=== PATIENT | male | born 1970 | race Two or more races ===

== ENCOUNTER 2019-02-12 05:25 | Emergency (ER) | payer SELFPAY ==
[~2019-02-12] VITALS: Ht 167.6 cm; Wt 63.5 kg
[2019-02-12 05:45] VITALS: BP 144/85
[2019-02-12] MEDS ORDERED: AMOX500C PO (06:26)
[2019-02-12] MEDS ORDERED: HYDR-3164 PO (06:26)
--- NOTE | 2019-02-12 06:26 | PHYS DOC ---
Past Medical History Past Medical History: No Pertinent History Additional Information: Denies smoking Adult General Chief Complaint Chief Complaint: COUGH HPI HPI Patient is a 49 year old French speaking male patient without history of medical problem who presents with complaint of cough. Patient complaining of productive cough with brownish sputum, sore throat, bilateral chest pain during episodes of cough, posttussive vomiting and subjective fever for the last 2 weeks. Patient was seen at [facility] yesterday and had extensive evaluation including chest x-ray and labs showed pancytopenia with unremarkable blood smea r. Patient had diagnoses of influenza discharged home with Tessalon and Tylenol but he states he doesn't feel better today. Patient did not have fever at arrival to ER. Review of Systems Review of Systems Constitutional: Reports subjective fever Eyes: Denies change in visual acuity, redness, or eye pain [] HENT: Denies nasal congestion, reports sore throat [] Respiratory: Denies shortness of breath, reports cough [] Cardiovascular: No additional information not addressed in HPI [] GI: Denies abdominal pain, bloody stools or diarrhea [] : Denies dysuria or hematuria [] Musculoskeletal: Denies back pain or joint pain [] Integument: Denies rash or skin lesions [] Neurologic: Denies headache, focal weakness or sensory changes [] Endocrine: Denies polyuria or polydipsia [] All other systems were reviewed and found to be within normal limits, except as documented in this note. Current Medications Current Medications Current Medications Medications (Trade) Dose Ordered Sig/Yusef Start Time Stop Time Status Last Admin Dose Admin Acetaminophen/ Hydrocodone Bitart (Lortab 5/325) 1 tab 1X ONCE 02/12/19 07:00 02/12/19 07:01 Allergies Allergies Allergies Coded Allergies Type Severity Reaction Last Updated Verified No Known Drug Allergies 02/12/19 No Physical Exam Physical Exam Constitutional: Well developed, well nourished, mild distress, non-toxic appearance, O2 sat of 100% at room air. [] HENT: Normocephalic, atraumatic, bilateral external ears normal, oropharynx moist, no oral exudates, nose normal. [] Eyes: PERRLA, EOMI, conjunctiva normal, no discharge. [] Neck: Normal range of motion, no tenderness, supple, no stridor. [] Cardiovascular:Heart rate regular rhythm, no murmur [] Lungs & Thorax: Bilateral breath sounds clear to auscultation [] Abdomen: Bowel sounds normal, soft, no tenderness, no masses, no pulsatile masses. [] Skin: Warm, dry, no erythema, no rash. [] Back: No tenderness, no CVA tenderness. [] Extremities: No tenderness, no cyanosis, no clubbing, ROM intact, no edema. [] Neurologic: Alert and oriented X 3, normal motor function, normal sensory function, no focal deficits noted. [] Psychologic: Affect normal. EKG EKG [] Radiology/Procedures Radiology/Procedures [] Course & Med Decision Making Course & Med Decision Making Evaluation of patient in ER showed 49-year-old male patient with complaining of URI symptoms for 2 weeks and extensive evaluation including chest x-ray at [facility] yesterday with diagnosis of influenza. Patient had stable vital signs at arrival to ER. Patient was advised to continue to follow and prescription for amoxicillin and [place] was given. Patient was advised to take his medication for at least 48-72 hours to see the change of his symptoms. I've spoken with the patient and/or caregivers. I've explained the patient's condition, diagnosis and treatment plan based on information available to me at this time. I've answered the patient's and/or caregivers questions and addressed any concerns. The patient and/or caregivers have a good understanding the patient's diagnosis, condition and treatment plan as can be expected at this point. Vital signs have been stabilized. The patient's condition is stable for discharge from the emergency department. The patient will pursue further outpatient evaluation with her primary care provider or other designated consulting physician as outlined in the discharge instructions. Patient and/or caregivers are agreeable to this plan of care and follow-up instructions have been explained in detail. The patient and/or caregivers have received these instructions in written format and expressed understanding of these discharge instructions. The patient and her caregivers are aware that if any significant change in condition or worsening of symptoms should prompt him to immediately return to this of the closest emergency department. If an emergent department is not readily available I would encourage him to call 911. Sandoval Disclaimer Sandoval Disclaimer This electronic medical record was generated, in whole or in part, using a voice recognition dictation system. Departure Departure Impression: Primary Impression: Acute bronchitis Additional Impression: Influenza A Disposition: HOME, SELF-CARE (at 0624) Condition: STABLE Referrals: NO PCP (PCP) Patient Instructions: Acute Bronchitis, Cough, Adult, Influenza A (H1N1) Additional Instructions: Drink plenty of liquids Follow-up with your primary care physician in 3-5 days Return to ER if not getting better Scripts Hydrocodone/Apap 5-325 (NORCO 5-325 TABLET) 1 Each Tablet 1 TAB PO PRN Q6HRS PRN for PAIN, #14 TAB 0 Refills Prov: TRAVIS KIRAN MD 02/12/19 Amoxicillin (AMOXICILLIN) 500 Mg Capsule 1 CAP PO Q8HRS for infection, #30 CAP Prov: TRAVIS KIRAN MD 02/12/19 Problem Qualifiers Primary Impression: Acute bronchitis Bronchitis organism: unspecified organism Qualified Codes: J20.9 - Acute bronchitis, unspecified TRAVIS KIRAN MD Feb 12, 2019 06:26
[2019-02-12] MEDS ORDERED: HYDROcodone/APAP 5/325MG 1 TAB TABLET PO ONE (07:00)
== END 2019-02-12 06:59 | disposition home or self-care (01) ==
LOC: ER 05:25
DX: J10.1 Influenza due to other identified influenza virus with other respiratory manifestations (principal); J20.9 Acute bronchitis, unspecified; R11.10 Vomiting, unspecified; R50.9 Fever, unspecified; R07.89 Other chest pain
CPT/HCPCS: 99283

== ENCOUNTER 2019-02-14 18:30 | Emergency (ER) | payer SELFPAY ==
[~2019-02-14] VITALS: Ht 177.8 cm; Wt 63.5 kg
[~2019-02-14 18:30] MED LIST: AMOX500C PO; HYDR-3164 PO
[2019-02-14] MEDS ORDERED: ALBUTEROL SULFATE 2.5 MG/3 ML NEBU. NEB ONE (20:00)
[2019-02-14] MEDS ORDERED: ALBU2.5V8 INH (20:04)
--- NOTE | 2019-02-14 20:05 | PHYS DOC ---
Past Medical History Past Medical History: Bronchitis (WOODY GIRON APRN) Past Surgical History: No Surgical History (WOODY GIRON APRN) Alcohol Use: Occasionally Drug Use: None (WOODY GIRON APRN) Attending Signature I have participated in the care of this patient and I have reviewed and agree with all pertinent clinical information above including history, exam, and recommendations. (ZEN ESCOBAR MD) Adult General Chief Complaint Chief Complaint: FLU SYMPTOM HPI HPI Patient is a 49 year old [male] who presents with [fatigue. Patient reportedly has been feeling ill for the past 2 weeks, had been seen at [facility] on February, diagnosed with influenza. Had been prescribed Tessalon Per[place] and given Tylenol. Patient had return to this emergency room February 12, was prescribed amoxicillin and [place] for discomfort. And diagnosed with bronchitis. Patient reports he continues to feel weak and thinks he needs to be admitted to the hospital because he does not have anyone at home to take care of him. Patient reports he is eating and drinking, reports he had eaten some soup today that somebody had brought him. Patient reports he has had a slight cough for the past few weeks, has not been taking medications as prescribed. Patient reports he just feels too weak to eat or drink. Patient denies any fevers. Denies any nausea, vomiting, diarrhea.] (WOODY GIRON APRN) Review of Systems Review of Systems Constitutional: Denies fever or chills reports fatigue, reports he does not have anyone who can take care of him [] Eyes: Denies change in visual acuity, redness, or eye pain [] HENT: Denies nasal congestion or sore throat [] Respiratory: Reports occasional cough, denies shortness of breath Cardiovascular: No additional information not addressed in HPI [] GI: Denies abdominal pain, nausea, vomiting, bloody stools or diarrhea [] : Denies dysuria or hematuria [] Musculoskeletal: Denies back pain or joint pain [] Integument: Denies rash or skin lesions [] Neurologic: Denies headache, focal weakness or sensory changes [] Endocrine: Denies polyuria or polydipsia [] All other systems were reviewed and found to be within normal limits, except as documented in this note. (WOODY GIRON APRN) Current Medications Current Medications Current Medications Medications (Trade) Dose Ordered Sig/Yusef Start Time Stop Time Status Last Admin Dose Admin Albuterol Sulfate (Ventolin Neb Soln) 2.5 mg 1X ONCE 02/14/19 20:00 02/14/19 20:01 DC (ZEN ESCOBAR MD) Allergies Allergies Allergies Coded Allergies Type Severity Reaction Last Updated Verified No Known Drug Allergies 02/12/19 No (ZEN ESCOBAR MD) Physical Exam Physical Exam Constitutional: Well developed, well nourished, no acute distress, non-toxic appearance. [] HENT: Normocephalic, atraumatic, bilateral external ears normal, oropharynx moist, no oral exudates, nose normal. [] Eyes: PERRLA, EOMI, conjunctiva normal, no discharge. [] Neck: Normal range of motion, no tenderness, supple, no stridor. [] Cardiovascular:Heart rate regular rhythm, no murmur heart rate noted 70, regular[] Lungs & Thorax: Bilateral breath sounds clear to auscultation faint wheeze noted to lower lobes of chest [] Abdomen: Bowel sounds normal, soft, no tenderness, no masses, no pulsatile masses. [] Skin: Warm, dry, no erythema, no rash. [] Back: No tenderness, no CVA tenderness. [] Extremities: No tenderness, no cyanosis, no clubbing, ROM intact, no edema. [] Neurologic: Alert and oriented X 3, normal motor function, normal sensory f unction, no focal deficits noted. [] Psychologic: Affect normal, judgement normal, mood normal. [] (WOODY GIRON APRN) Current Patient Data Vital Signs Vital Signs Date Time Temp Pulse Resp B/P (MAP) Pulse Ox O2 Delivery O2 Flow Rate FiO2 02/14/19 20:38 83 20 144/90 (108) 96 Room Air 02/14/19 18:55 97.3 97.3 (ZEN ESCOBAR MD) EKG EKG [] (WOODY GIRON APRN) Radiology/Procedures Radiology/Procedures [] (WOODY GIRON APRN) Course & Med Decision Making Course & Med Decision Making Pertinent Labs and Imaging studies reviewed. (See chart for details) [Discussed at length with patient, the best treatment for influenza is home and rest and hydration. Advised patient he does not need to be hospitalized for this, as he is ambulatory, he is eating, he is drinking, he has a place to stay and is able to care for himself he is just choosing not to. Advised patient to continue take medications he was prescribed previously, rest, hydrate. Advised patient again symptoms may take several weeks to fully improve. Advised patient his vitals today are normal, he is not hypoxic, is exam is unremarkable. We will prescribe an inhaler for him to use for his cough, and have provided a breathing treatment here.] (WOODY GIRON APRN) Dragon Disclaimer Dragon Disclaimer This electronic medical record was generated, in whole or in part, using a voice recognition dictation system. (WOODY GIRON APRN) Departure Departure Impression: Primary Impression: Post-influenza syndrome Additional Impression: Fatigue Disposition: 01 HOME, SELF-CARE Condition: GOOD Referrals: NO PCP (PCP) Patient Instructions: Influenza Facts Additional Instructions: Trang hablemos, meena agua o jugo. Meena Ibuprofen 400 mg cada 6 horas. Continua los medicinas que estaba recetada antes. Lo mejor tratamiento es descansar y queda hidritada. Los sintomas de influenza puede pasar semanas x mejorar. La mejor lugar para recuperar de influenza es la casa, no en hospital. Scripts Albuterol Sulfate (PROAIR HFA INHALER) 8.5 Gm Hfa.aer.ad 1 PUFF INH PRN Q6HRS PRN for SHORTNESS OF BREATH, #1 INHALER 0 Refills Prov: WOODY GIRON APRN 02/14/19 Problem Qualifiers Additional Impression: Fatigue Fatigue type: postviral fatigue syndrome Qualified Codes: G93.3 - Postviral fatigue syndrome WOODY GIRON APRN Feb 14, 2019 20:05 ZEN ESCOBAR MD Feb 15, 2019 07:59
[2019-02-14 20:38] VITALS: BP 144/90
== END 2019-02-14 20:38 | disposition home or self-care (01) ==
LOC: ER 18:30
DX: G93.3 Postviral and related fatigue syndromes (principal); R05 Cough; J42 Unspecified chronic bronchitis
CPT/HCPCS: 94640; 99283